=== PATIENT | female | born 1990 | race Two or more races ===

== ENCOUNTER 2017-11-19 05:03 | Inpatient (IN) | payer OTHER ==
[2017-11-19] MEDS ORDERED: IV RINGERS,LACTATED 1000ML 1,000 ML IV (05:43)
[2017-11-19] MEDS: IV RINGERS,LACTATED 1000ML 1,000 ML IV ×4 (05:49→22:35)
[2017-11-19 06:13] LABS: HEMATOCRIT 34.5 % (36.0-47.0); HEMOGLOBIN 11.6 g/dL (12.0-15.5); MEAN CORPUSCULAR HEMOGLOBIN 29 pg (25-35); MEAN CORPUSCULAR HGB CONC 34 g/dL (31-37); MEAN CORPUSCULAR VOLUME 85 fL (79-100); PLATELET COUNT 270 x10^3/uL (140-400); RED BLOOD COUNT 4.06 x10^6/uL (3.50-5.40); RED CELL DISTRIBUTION WIDTH 14.4 % (11.5-14.5); WHITE BLOOD COUNT 10.9 x10^3/uL (4.0-11.0)
[2017-11-19 06:38] LABS: GLUCOSE 112 mg/dL (70-99)
[2017-11-19] MEDS ORDERED: ONDANSETRON PF 4 MG/2 ML VIAL. (07:13)
[2017-11-19] MEDS ORDERED: fentaNYL PF VIAL 100 MCG/2 ML VIAL (07:13)
[2017-11-19] MEDS ORDERED: MORPHINE PF 5 MG/10 ML VIAL. (07:13)
[2017-11-19] MEDS ORDERED: FAMOTIDINE 20 MG/2 ML VIAL (07:13)
[2017-11-19] MEDS ORDERED: OXYTOCIN 10 UNIT/ML VIAL. ×3 (07:13→08:39)
[2017-11-19] MEDS: CITRIC ACID/SODIUM CITRATE 30 ML SOLUTION. PO (07:18)
[2017-11-19] MEDS ORDERED: PHENYLEPHRINE in 0.9% NACL PF 1 MG/10 ML SYRINGE. IV (08:20)
[2017-11-19] MEDS ORDERED: MMR per PROTOCOL. MC (09:15)
[2017-11-19] MEDS ORDERED: OXYTOCIN 30 UNIT/500 ML PREMIX 500 ML IV (09:15)
[2017-11-19] MEDS ORDERED: 0.9 % SODIUM CHLORIDE 10 ML DISP.SYRIN. IV (09:15)
[2017-11-19] MEDS ORDERED: MAG HYDROX/ALUMINUM HYD/SIMETH 30 ML ORAL.SUSP PO (09:15)
[2017-11-19] MEDS: KETOROLAC 30 MG/ML INJ. IV ×2 (11:07→22:28)
[2017-11-19] MEDS: ONDANSETRON PF 4 MG/2 ML VIAL. IV ×2 (13:25→22:26)
[2017-11-19] MEDS ORDERED: ceFAZolin SODIUM 1 GM in IV DEXTROSE 5% 50 ML IV (14:00)
[2017-11-19] MEDS: ceFAZolin SODIUM IV Push 1 GM VIAL. IVP ×2 (15:13→22:38)
[2017-11-19] MEDS: FERROUS SULFATE 325 MG TABLET. PO (17:00)
[2017-11-19] MEDS: diphenhydrAMINE ORAL ELIXIR 12.5 MG/5 ML ML PO (17:49)
[2017-11-19] MEDS: ZOLPIDEM 5 MG TABLET. PO (22:34)
[2017-11-19 23:10] LABS: RPR Non Reactive (Non Reactive)
[2017-11-20 04:41] LABS: ADD MAN DIFF? NO
[2017-11-20 05:05] LABS: BASO % 0 % (0-3); EOS # 0.1 x10^3/uL (0.0-0.7); EOS % 0 % (0-3); HEMATOCRIT 29.2 % (36.0-47.0); HEMOGLOBIN 9.8 g/dL (12.0-15.5); LYMPH # 2.5 x10^3/uL (1.0-4.8); LYMPH % 20 % (24-48); MEAN CORPUSCULAR HEMOGLOBIN 29 pg (25-35); MEAN CORPUSCULAR HGB CONC 34 g/dL (31-37); MEAN CORPUSCULAR VOLUME 86 fL (79-100); MONO # 0.9 x10^3/uL (0.0-1.1); MONO % 7 % (0-9); NEUT # 9.5 x10^3uL (1.8-7.7); NEUT % 73 % (31-73); PLATELET COUNT 227 x10^3/uL (140-400); RED BLOOD COUNT 3.41 x10^6/uL (3.50-5.40); RED CELL DISTRIBUTION WIDTH 14.4 % (11.5-14.5)
[2017-11-20] MEDS: oxyCODONE/APAP 5/325 1 TAB TABLET PO ×5 (05:55→23:32)
[2017-11-20] MEDS: KETOROLAC 30 MG/ML INJ. IV (05:56)
[2017-11-20] MEDS: ceFAZolin SODIUM IV Push 1 GM VIAL. IVP (05:56)
[2017-11-20 08:15] LABS: POC GLUCOSE 97 mg/dL (70-99)
[2017-11-20] MEDS: FERROUS SULFATE 325 MG TABLET. PO ×2 (10:43→18:03)
[2017-11-20] MEDS: DOCUSATE SODIUM 100 MG CAPSULE. PO (12:14)
[2017-11-20 18:06] LABS: POC GLUCOSE 99 mg/dL (70-99)
[2017-11-21] MEDS: oxyCODONE/APAP 5/325 1 TAB TABLET PO ×4 (03:30→18:20)
[2017-11-21 07:47] LABS: POC GLUCOSE 77 mg/dL (70-99)
[2017-11-21] MEDS: DOCUSATE SODIUM 100 MG CAPSULE. PO ×2 (07:51→18:19)
[2017-11-21] MEDS: FERROUS SULFATE 325 MG TABLET. PO ×2 (07:55→18:19)
[2017-11-21] MEDS: SIMETHICONE 80 MG TAB.CHEW PO ×2 (09:06→18:19)
[2017-11-21] MEDS: IBUPROFEN 800 MG TABLET. PO (18:19)
[2017-11-22] MEDS: oxyCODONE/APAP 5/325 1 TAB TABLET PO ×3 (06:12→18:47)
[2017-11-22] MEDS: IBUPROFEN 800 MG TABLET. PO ×2 (06:13→18:47)
[2017-11-22] MEDS: SIMETHICONE 80 MG TAB.CHEW PO (09:21)
[2017-11-22] MEDS: DOCUSATE SODIUM 100 MG CAPSULE. PO ×2 (09:21→18:46)
[2017-11-22] MEDS: FERROUS SULFATE 325 MG TABLET. PO ×2 (09:21→18:46)
[2017-11-22] MEDS: MAGNESIUM HYDROXIDE 2,400 MG/30 ML ORAL.SUSP. PO (09:22)
== END 2017-11-22 19:11 | disposition home or self-care (01) | DRG 765 ==
LOC: 3 SO LND 05:03 → 3 NORTH 12:40
PROVIDERS: Specialist
PROC: 10D00Z1 Extraction of Products of Conception, Low, Open Approach (ICD-10-PCS; principal; 2017-11-19)
PROC: 0UL70ZZ Occlusion of Bilateral Fallopian Tubes, Open Approach (ICD-10-PCS; 2017-11-19)
DX: O34.211 Maternal care for low transverse scar from previous cesarean delivery (principal); O24.92 Unspecified diabetes mellitus in childbirth; O16.4 Unspecified maternal hypertension, complicating childbirth; Z37.0 Single live birth; Z3A.37 37 weeks gestation of pregnancy; Z82.49 Family history of ischemic heart disease and other diseases of the circulatory system; Z83.3 Family history of diabetes mellitus; Z87.891 Personal history of nicotine dependence
CPT/HCPCS: 36415; 82947; 82962; 85025; 85027; 86593; 86850; 86900; 86901; 88302; J0690; J1885; J2270; J2370; J2405; J2590; J3010; J7120; S0028